=== PATIENT | female | born 1990 | race Caucasian/White ===

== ENCOUNTER → 2019-11-29 | Outpatient (CLI) | payer OTHER ==
--- NOTE | 2019-11-29 12:09 | RADIOLOGY REPORT (SQ) ---
EXAM DESCRIPTION: U/S THYROID/SFT TISS HD NECK IMAGES COMPLETED DATE/TIME: 11/29/2019 11:58 am REASON FOR STUDY: NECK PAIN ON LEFT SIDE, WORSENING M54.2 CERVICALGIA COMPARISON: None. TECHNIQUE: Dynamic and static grayscale images acquired of the localized site of clinical concern an d recorded on PACS. Additional selected color Doppler and spectral images recorded. SITE OF CONCERN: Left neck LIMITATIONS: None. FINDINGS: SKIN AND SUBCUTANEOUS TISSUES: Small normal-appearing lymph nodes are identified bilateral ly. On the left there is a single 1.3 x 0.4 cm noted it contains central fat. DEEP SOFT TISSUES/MUSCLES: No masses. No fluid collections. No edema. VASCULAR: No increased or decreased vascularity. No occlusions. OTHER: No other significant finding. IMPRESSION: Normal lymph node is demonstrated at the site of clinically palpable abnormality and cli nical symptoms. No pathologic findings. TECHNICAL DOCUMENTATION: JOB ID: [id number] 2010 [employer]- All Rights Reserved Reading location - IP/workstation name: [email or web address]
== END ==
LOC: RAD 11:05
PROVIDERS: ATTEND Internal Medicine
DX: M54.2 Cervicalgia (principal)
CPT/HCPCS: 76536